=== PATIENT | female | born 1950 | race Caucasian/White ===

== ENCOUNTER 2016-10-09 10:35 | Day surgery (SDC) | payer MEDICARE, OTHER ==
[~2016-10-09] VITALS: Ht 167.6 cm; Wt 89.4 kg
[~2016-10-09 10:35] MED LIST: ACETAMINOPHEN 325 MG TAB PO PRN; ATEN100T7 PO; ATOR1TAB21 PO; BSS with VANC/TOB/EPI for EYE CASES IR ONE; CINN500C9 PO; CYCLOPENTOLATE 2% OPHTH SOLN 2ML BTL OS ONE; FERR28TA PO; FISH1000 PO; FOLI1TAB4 PO; GARC500T PO; GLUC500C5 PO; HEALON DUET (HEALON 10MG/ML 0.55ML & HEALON ENDOCOAT 30MG/ML 0.85ML) As Ordered ONE; LIDOCAINE 1% SDV 5 ML VIAL As Ordered ONE; LIDOCAINE 3.5 % 1ML OPHTH TOPICAL GEL OU ONE; METF500T13 PO; MOXIFLOXACIN IN BSS 0.25MG/0.25ML INTRACAMERAL INJ (OR EYE ONLY)(J2280) As Ordered ONE; NITR4PA EXT; OFLOXACIN 0.3 % (OCUFLOX) OPTH SOL 5ML OS ONE; OSTETAB4 PO; PANT40TA2 PO; PHENYLEPHRINE 2.5% OPHTH SOL 2ML OS ONE; POTA10TA16 PO; POVIDONE-IODINE 5% OPHTH PREP SOL 30ML As Ordered ONE; PROPARACAINE 0.5% OPHTH SOL 15ML OS PRN; TRIAMCINOLONE PRES FR 40 MG/ML 1ML(TRIESENCE)(OR EYE ONLY)(J3300 PER 1MG) As Ordered ONE; TROPICAMIDE 1% OPHTH SOLN 2ML OS ONE; TYLE650T35 PO; VALS1TAB46 PO; VITA100072 PO
[2016-10-09] MEDS ORDERED: LR 1,000 ML IV ONE (11:00)
[2016-10-09] MEDS ORDERED: LIDOCAINE 1% MDV 20ML VIAL SQ PRN (11:00)
[2016-10-09] MEDS ORDERED: MIDAZOLAM INJ 2 MG/2 ML VIAL (J2250) As Ordered ONE (12:57)
[2016-10-09] MEDS ORDERED: fentaNYL 100 MCG/2 ML INJECTION (J3010) As Ordered ONE (12:58)
[2016-10-09] MEDS ORDERED: AcetaZOLAMIDE 500 MG ER CAP PO ONE (14:30)
[2016-10-09] MEDS ORDERED: TRIMETHOBENZAMIDE 300 MG CAP PO PRN (14:30)
[2016-10-09] MEDS ORDERED: KETOROLAC 0.5% OPHTH SOLN OS ONE (14:30)
[2016-10-09 15:05] VITALS: BP 118/58
--- NOTE | 2016-10-11 11:25 | RO ---
DATE OF PROCEDURE: 10/09/2016 PREPROCEDURE DIAGNOSIS: Cataract of Left eye. POSTPROCEDURE DIAGNOSIS: Cataract of Left eye. PROCEDURE: Femtosecond laser and phacoemulsification of the intraocular lens with lens implantation Left eye. Intraocular lens power used was Left, [id number], power 20 diopter. SURGEON: Gilberto Bravo MD MANAGER WATER: None. ANESTHESIA: Local IV standby. FINDINGS: Cataract of Left eye. COMPLICATIONS: None. DESCRIPTION OF PROCEDURE: The patient was brought to the operating room and laid in supine position. A lid speculum was placed, and patient was brought under the femtosecond laser. After the satisfactory placement of the patient interface, primary incision, secondary incision, and arcuate incisions with lens fragmentation was done without any complication per plan. The patients interface was then removed and lid speculum removed. Patient was placed under the microscope. The eye was prepped and draped in a sterile fashion for ophthalmic surgery. Lid speculum was placed. The secondary incision was opened, and EndoCoat was injected into the anterior chamber. The temporal clear corneal incision was then opened and capsulorrhexis removed, followed by hydrodissection. This was followed by phacoemulsification of the lens within the capsular bag. Cortical material was then aspirated, and Healon was injected into the capsular bag. Intraocular lens was then placed. Excess Healon was aspirated. Wound was hydrated. The lid speculum was removed, and patient was returned to the recovery room in stable condition. KT
== END 2016-10-09 15:25 | disposition home or self-care (01) ==
LOC: M SDC 10:35
PROVIDERS: ATTEND Ophthalmology
DX: H25.9 Unspecified age-related cataract (principal); E11.9 Type 2 diabetes mellitus without complications; I10 Essential (primary) hypertension; E78.5 Hyperlipidemia, unspecified; K21.9 Gastro-esophageal reflux disease without esophagitis; Z87.891 Personal history of nicotine dependence; Z79.899 Other long term (current) drug therapy
CPT/HCPCS: 66984; J2250; J2280; J3010; J3300; V2788

== ENCOUNTER 2016-10-16 08:50 | Day surgery (SDC) | payer MEDICARE, OTHER ==
[~2016-10-16] VITALS: Ht 167.6 cm; Wt 89.4 kg
[~2016-10-16 08:50] MED LIST changes: +CYCLOPENTOLATE 2% OPHTH SOLN 2ML BTL OD ONE; -CYCLOPENTOLATE 2% OPHTH SOLN 2ML BTL OS ONE; -MOXIFLOXACIN IN BSS 0.25MG/0.25ML INTRACAMERAL INJ (OR EYE ONLY)(J2280) As Ordered ONE; +OFLOXACIN 0.3 % (OCUFLOX) OPTH SOL 5ML OD ONE; -OFLOXACIN 0.3 % (OCUFLOX) OPTH SOL 5ML OS ONE; +PHENYLEPHRINE 2.5% OPHTH SOL 2ML OD ONE; -PHENYLEPHRINE 2.5% OPHTH SOL 2ML OS ONE; +PROPARACAINE 0.5% OPHTH SOL 15ML OD PRN; -PROPARACAINE 0.5% OPHTH SOL 15ML OS PRN; +TROPICAMIDE 1% OPHTH SOLN 2ML OD ONE; -TROPICAMIDE 1% OPHTH SOLN 2ML OS ONE
[2016-10-16] MEDS ORDERED: LIDOCAINE 1% SDV 5 ML VIAL SQ ONE (09:00)
[2016-10-16] MEDS ORDERED: LR 500 ML IV ONE (09:00)
[2016-10-16] MEDS ORDERED: MIDAZOLAM INJ 2 MG/2 ML VIAL (J2250) As Ordered ONE ×2 (10:28→10:56)
[2016-10-16] MEDS ORDERED: ONDANSETRON 4MG/2ML VIAL (J2405) As Ordered ONE (10:28)
[2016-10-16] MEDS ORDERED: CEFUROXIME 1MG/0.1ML INTRACAMERAL INJ As Ordered ONE (10:46)
[2016-10-16] MEDS ORDERED: AcetaZOLAMIDE 500 MG ER CAP PO ONE (11:30)
[2016-10-16] MEDS ORDERED: TRIMETHOBENZAMIDE 300 MG CAP PO PRN (11:30)
[2016-10-16] MEDS ORDERED: KETOROLAC 0.5% OPHTH SOLN OD ONE (11:30)
[2016-10-16 11:50] VITALS: BP 122/58
--- NOTE | 2016-10-17 13:43 | RO ---
DATE OF PROCEDURE: 10/16/2016 PREPROCEDURE DIAGNOSIS: Cataract of right eye. POSTPROCEDURE DIAGNOSIS: Cataract of right eye. PROCEDURE: Femtosecond laser and phacoemulsification of the intraocular lens with lens implantation right eye. Intraocular lens power used was [id number], 19.5 diopter. SURGEON: Gilberto Bravo MD C4 PLANNER: None. ANESTHESIA: Local IV standby. FINDINGS: Cataract of right eye. COMPLICATIONS: None. DESCRIPTION OF PROCEDURE: The patient was brought to the operating room and laid in supine position. A lid speculum was placed, and patient was brought under the femtosecond laser. After the satisfactory placement of the patient interface, primary incision, secondary incision, and arcuate incisions with lens fragmentation was done without any complication per plan. The patients interface was then removed and lid speculum removed. Patient was placed under the microscope. The eye was prepped and draped in a sterile fashion for ophthalmic surgery. Lid speculum was placed. The secondary incision was opened, and EndoCoat was injected into the anterior chamber. The temporal clear corneal incision was then opened and capsulorrhexis removed, followed by hydrodissection. This was followed by phacoemulsification of the lens within the capsular bag. Cortical material was then aspirated, and Healon was injected into the capsular bag. Intraocular lens was then placed. Excess Healon was aspirated. Wound was hydrated. The lid speculum was removed, and patient was returned to the recovery room in stable condition.
== END 2016-10-16 12:00 | disposition home or self-care (01) ==
LOC: M SDC 08:50
PROVIDERS: ATTEND Ophthalmology
DX: H26.9 Unspecified cataract (principal); I20.9 Angina pectoris, unspecified; I10 Essential (primary) hypertension; E78.00 Pure hypercholesterolemia, unspecified; E11.9 Type 2 diabetes mellitus without complications; K21.9 Gastro-esophageal reflux disease without esophagitis; M15.0 Primary generalized (osteo)arthritis; J32.9 Chronic sinusitis, unspecified; N19 Unspecified kidney failure; F32.9 Major depressive disorder, single episode, unspecified; R31.29 Other microscopic hematuria; E66.9 Obesity, unspecified; Z79.899 Other long term (current) drug therapy; Z79.84 Long term (current) use of oral hypoglycemic drugs; Z78.0 Asymptomatic menopausal state; Z86.79 Personal history of other diseases of the circulatory system; Z87.891 Personal history of nicotine dependence
CPT/HCPCS: 66984; J2250; J2405; J3300; V2788

== ENCOUNTER → 2017-09-04 | Outpatient (REF) | payer MEDICARE, OTHER ==
[2017-09-04 18:10] LABS: URINE TOTAL PROTEIN 21.3 MG/DL (0-12)
[2017-09-04 18:16] LABS: FERRITIN 36 NG/ML (8-252); IRON (FE) 80 UG/DL (50-170); PERCENT SATURATION 26.6 % (13.2-45.0); TOTAL IRON BINDING CAPACITY 301 UG/DL (250-450); TOTAL PROTEIN 6.6 GM/DL (6.4-8.2)
[2017-09-07 09:05] LABS: FREE KAPPA LIGHT CHAINS SERUM 27.1 mg/L (3.3-19.4); FREE LAMBDA LIGHT CHAINS SERUM 19.9 mg/L (5.7-26.3); KAPPA/LAMBDA RATIO SERUM 1.36 (0.26-1.65)
[2017-09-08 14:56] LABS: ALBUMIN 3.87 GM/DL (3.29-5.55); ALBUMIN % 58.7 % (55.8-66.1); ALPHA-1-GLOBULIN % 4.9 % (2.9-4.9); ALPHA-1-GLOBULINS 0.32 GM/DL (0.17-0.41); ALPHA-2-GLOBULINS 0.67 GM/DL (0.42-0.99); ALPHA-2-GLOBULINS % 10.2 % (7.1-11.8); BETA-1-GLOBULINS 0.42 GM/DL (0.28-0.60); BETA-1-GLOBULINS % 6.4 % (4.7-7.2); BETA-2-GLOBULINS 0.34 GM/DL (0.19-0.55); BETA-2-GLOBULINS % 5.1 % (3.2-6.5); GAMMA GLOBULIN % 14.7 % (11.1-18.8); GAMMA GLOBULINS 0.97 GM/DL (0.65-1.58)
[2017-09-10 14:54] LABS: UPEP INTERPRETATION NO M-SPIKE NOTED; URINE VOLUME RANDOM ML
== END ==
LOC: M LAB REF 17:08
DX: N18.2 Chronic kidney disease, stage 2 (mild) (principal); E83.52 Hypercalcemia; D63.1 Anemia in chronic kidney disease
CPT/HCPCS: 83550

== ENCOUNTER → 2017-10-10 | Outpatient (REF) | payer MEDICARE, OTHER | LOC: M LAB REF 09:44 | DX: H02.413 Mechanical ptosis of bilateral eyelids (principal); H02.831 Dermatochalasis of right upper eyelid; H02.834 Dermatochalasis of left upper eyelid | CPT/HCPCS: 88302 ==

== ENCOUNTER → 2019-05-17 | Outpatient (CLI) | payer MEDICARE, OTHER ==
[~2019-05-17] MED LIST changes: -ACETAMINOPHEN 325 MG TAB PO PRN; -BSS with VANC/TOB/EPI for EYE CASES IR ONE; -CYCLOPENTOLATE 2% OPHTH SOLN 2ML BTL OD ONE; +FOLI1TAB11 PO; -FOLI1TAB4 PO; -HEALON DUET (HEALON 10MG/ML 0.55ML & HEALON ENDOCOAT 30MG/ML 0.85ML) As Ordered ONE; -LIDOCAINE 1% SDV 5 ML VIAL As Ordered ONE; -LIDOCAINE 3.5 % 1ML OPHTH TOPICAL GEL OU ONE; +NITR0.4D3 EXT; -NITR4PA EXT; -OFLOXACIN 0.3 % (OCUFLOX) OPTH SOL 5ML OD ONE; -PANT40TA2 PO; +PANT40TA3 PO; -PHENYLEPHRINE 2.5% OPHTH SOL 2ML OD ONE; -POVIDONE-IODINE 5% OPHTH PREP SOL 30ML As Ordered ONE; -PROPARACAINE 0.5% OPHTH SOL 15ML OD PRN; -TRIAMCINOLONE PRES FR 40 MG/ML 1ML(TRIESENCE)(OR EYE ONLY)(J3300 PER 1MG) As Ordered ONE; -TROPICAMIDE 1% OPHTH SOLN 2ML OD ONE; -VALS1TAB46 PO; +VALS1TAB66 PO; +VITA100018 PO; -VITA100072 PO
[2019-05-17 11:15] LABS: HEMATOCRIT 43.9 % (36.0-47.0); HEMOGLOBIN 13.8 g/dl (12.0-15.5); MEAN CORPUSCULAR HEMOGLOBIN 28.5 pg (27.0-33.0); MEAN CORPUSCULAR HGB CONC 31.4 g/dl (32.0-36.5); MEAN CORPUSCULAR VOLUME 90.5 fl (80.0-96.0); PLATELET COUNT, AUTOMATED 273 10^3/uL (150-450); RED BLOOD COUNT 4.85 10^6/uL (4.00-5.40); WHITE BLOOD COUNT 8.1 10^3/uL (4.0-10.0)
[2019-05-17 11:31] LABS: INR 1.01
--- NOTE | 2019-05-17 11:34 | REP ---
Clinical: Preoperative assessment for right knee replacement . Comparison: None . Technique: PA and lateral. Findings: The mediastinum and cardiac silhouette are normal. The lung beckwith are clear and without acute consolidation, effusion, or pneumothorax. The skeletal structures are intact and normal. Impression: 1. No acute cardiopulmonary process. Electronically Signed by Armando Lopez MD 05/17/2019 11:26 A
[2019-05-17 11:35] LABS: ERYTHROCYTE SEDIMENTATION RATE 15 mm/hr (0-30)
[2019-05-17 11:46] LABS: ALBUMIN 3.3 GM/DL (3.2-5.2); BILIRUBIN,TOTAL 0.5 MG/DL (0.2-1.0); CALCIUM LEVEL 9.7 MG/DL (8.8-10.2); CREATININE FOR GFR 1.23 MG/DL (0.55-1.30); POTASSIUM SERUM 4.3 MEQ/L (3.5-5.1); TOTAL PROTEIN 6.9 GM/DL (6.4-8.2)
--- NOTE | 2019-05-17 17:56 | ECGEPIP ---
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
== END ==
LOC: M LAB 10:47
PROVIDERS: ATTEND Orthopaedic Surgery
DX: Z01.818 Encounter for other preprocedural examination (principal); M17.11 Unilateral primary osteoarthritis, right knee; Z79.01 Long term (current) use of anticoagulants

== ENCOUNTER → 2019-08-06 | Outpatient (CLI) | payer MEDICARE, OTHER ==
[~2019-08-06] MED LIST changes: +BUPR300T92 PO; +CINN500C15 PO; +DULO1CAP6 PO; +FAMO40TA3 PO; +FERR325T82 PO; +IRON65TA2 PO; +NITR0.4D6 TD; +OMEG10002 PO; +PERC5TAB12 PO; +XARE10TA PO; +[UNRECOGNIZED DRUG - OTHER]
== END ==
LOC: M LABSMTC 09:56
PROVIDERS: ATTEND Anesthesiology
DX: Z01.818 Encounter for other preprocedural examination (principal); Z11.59 Encounter for screening for other viral diseases

== ENCOUNTER 2019-08-09 11:02 | Inpatient (IN) | payer MEDICARE, OTHER ==
--- NOTE | 2019-08-06 16:48 | HPE ---
DATE OF ANTICIPATED ADMISSION: 08/09/2019 ATTENDING PHYSICIAN: Dr. Chris Baumann CHIEF COMPLAINT: Right knee pain and stiffness. HISTORY: This is a pleasant 68-year-old female patient with progressively worsening right knee pain and stiffness who has failed to improve with conservative management and has elected for surgical intervention for her continued symptoms. She has been consented for a right total knee arthroplasty with Dr. Chris Baumann. ALLERGIES: NO KNOWN DRUG ALLERGIES. CURRENT MEDICATIONS: - acetaminophen 650 mg two by mouth every 8 hours for pain - aspirin 81 mg one by mouth daily - atenolol 50 mg one by mouth daily - baclofen 10 mg one by mouth three times a day - bupropion 300 mg one by mouth daily - chlorthalidone 25 mg half tablet by mouth daily - cinnamon 500 mg one by mouth daily - duloxetine 60 mg one by mouth daily - famotidine 40 mg one by mouth daily - fish oil 1000 mg one by mouth daily - folic acid 1 mg one by mouth daily - iron 325 mg one by mouth daily - magnesium oxide 400 mg one by mouth daily - nitroglycerin 0.4 mg one under tongue as needed PAST MEDICAL HISTORY: Hypertension. Stage III kidney disease. Angina. Sciatica. Hyperlipidemia. Prediabetes. PAST SURGICAL HISTORY: Cholecystectomy. FAMILY HISTORY: Noncontributory. SOCIAL HISTORY: The patient does not use alcohol or tobacco products. REVIEW OF SYSTEMS: Denies fever, chills, chest pain, shortness breath, nausea, vomiting, diarrhea. Denies any recent upper respiratory symptoms. Reports right knee pain and stiffness with ambulation. Reports recently resolved urinary tract infection (UTI). PHYSICAL EXAMINATION: Height 65.75 inches. Weight 186 pounds. Temperature 98.2. Blood pressure 124/74. Pulse 63. Respirations 15. She is normocephalic, atraumatic, ambulates in the clinic with an antalgic gait favoring the right knee. S1, S2 auscultated with no murmurs, rubs, or gallops. Lungs: Clear to auscultation bilaterally. Neck: Supple and nontender with no lymphadenopathy or jugular venous distention (JVD). Abdomen: Soft, nontender. Right knee shows intact neurovascular status is well perfused. She has intact range of motion. No obvious deformity. Overlying skin is intact. Chest x-ray from 05/17/2019 shows no acute cardiopulmonary process. EKG from 05/17/2019 with sinus rhythm. Labs from 05/17/2019, white blood count 8.1, red blood count 4.85, hemoglobin 13.8, hematocrit 43.9, ESR 15, BUN 28, creatinine 1.23, PT 13, INR 1.01. Patient reports that she saw her primary care provider and was medically optimized on 08/03/2019. This is not available yet for review on chart. IMPRESSION: Right knee symptomatic degenerative changes. The patient has been consented for right knee total arthroplasty with Dr. Baumann on 08/09/2019. She had a recently treated urinary tract infection, which has since resolved. She discontinued her Cipro on 08/05/2019. She has stopped her aspirin and fish oil in preparation for surgery. She will go ahead with the procedure pending clearance by her primary care provider.
[~2019-08-09] VITALS: Ht 167.6 cm; Wt 87.0 kg
[2019-08-09] VITALS (7 sets, daily range): BP systolic 117–162; BP diastolic 62–84; O2SAT 97
[~2019-08-09 11:02] MED LIST changes: +LR 1,000 ML IV ONE; -PERC5TAB12 PO; -XARE10TA PO
[2019-08-09] MEDS ORDERED: ceFAZolin SOD 2 GM in IV 1 EA IV ONE (12:00)
--- NOTE | 2019-08-09 12:02 | IPN ---
DATE: 08/09/2019 Patient seen and examined. She wished to go ahead with a right total knee arthroplasty. She understands the nature of this, the risks of bleeding, infection, damage to nerves, vessels, persistent pain, wear loosening, blood clots, medical problems, , among others.
[2019-08-09 12:22] LABS: INR 0.94; PROTHROMBIN TIME 12.3 SECONDS (11.8-14.0)
[2019-08-09] MEDS ORDERED: ceFAZolin 1GM VIAL (J0690 PER 500MG) As Ordered ONE (12:29)
[2019-08-09] MEDS ORDERED: BUPIVACAINE LIPOSOME/PF 1.3% 20ML VIAL (13.3MG/ML)(EXPAREL)(C9290 PER1MG) As Ordered ONE (12:29)
[2019-08-09] MEDS ORDERED: EPINEPHrine INJ 1 MG/ML 1ML AMP As Ordered ONE (12:29)
[2019-08-09] MEDS ORDERED: TRANEXAMIC ACID 100 MG/ML 10ML VIAL As Ordered ONE (12:29)
[2019-08-09] MEDS ORDERED: fentaNYL 100 MCG/2 ML INJECTION (J3010) As Ordered ONE ×2 (12:53→12:56)
[2019-08-09] MEDS ORDERED: MIDAZOLAM INJ 2MG/2ML VIAL (J2250 PER 1MG) As Ordered ONE ×2 (12:53→12:55)
[2019-08-09] MEDS ORDERED: ONDANSETRON 4MG/2ML VIAL As Ordered ONE (12:56)
[2019-08-09] MEDS ORDERED: propofoL 500 MG/50 ML VIAL As Ordered ONE (12:56)
[2019-08-09] MEDS ORDERED: LIDOCAINE 2% 100MG/5ML SDV (FOR ANES.) As Ordered ONE (12:56)
[2019-08-09] MEDS ORDERED: fentaNYL 100 MCG/2 ML INJECTION (J3010) IV PRN ×2 (13:30→16:10)
[2019-08-09] MEDS ORDERED: MIDAZOLAM INJ 2MG/2ML VIAL (J2250 PER 1MG) IV PRN (13:30)
[2019-08-09] MEDS ORDERED: ePHEDrine SULFATE 25 MG/5 ML(5MG/ML) SYRINGE As Ordered ONE (15:08)
[2019-08-09] MEDS ORDERED: PHENYLephrine HCL 500 MCG/5 ML (100MCG/ML) SYRINGE (J2370) As Ordered ONE (15:08)
[2019-08-09] MEDS ORDERED: EPINEPHrine INJ 1 MG/ML 1ML AMP ONE (15:22)
[2019-08-09] MEDS ORDERED: ROPIvacaine 0.5% 30ML INJECTION (J2795 PER 1MG) ONE (15:22)
[2019-08-09] MEDS ORDERED: LIDOCAINE 1% MDV 20ML VIAL ONE (15:22)
[2019-08-09] MEDS ORDERED: LR 1,000 ML IV SCH ×2 (16:10→16:15)
[2019-08-09] MEDS ORDERED: METOCLOPRAMIDE INJ 10MG/2ML VIAL (J2765 PER 1) IV PRN (16:10)
[2019-08-09] MEDS ORDERED: PERCOCET 5MG/325MG TAB PO PRN (16:10)
[2019-08-09] MEDS ORDERED: ONDANSETRON 4MG/2ML VIAL IV PRN ×2 (16:10→16:15)
[2019-08-09] MEDS ORDERED: MORPHINE 4 MG/ML 1ML VIAL/SYRINGE (J2270) IV PRN (16:15)
[2019-08-09] MEDS ORDERED: ACETAMINOPHEN TAB 650MG DOSE (2X325MG) PO PRN (16:15)
[2019-08-09] MEDS ORDERED: MORPHINE 2 MG/ML 1ML VIAL (J2270) IV PRN (16:15)
--- NOTE | 2019-08-09 16:59 | REP ---
REASON: Postop TKR. The femoral and tibial components of the total knee prosthetic device are well seated and well approximated. The alignment is near anatomical. There is expected postoperative soft tissue swelling. There is an anterior midline skin staple line in place. Electronically Signed by Javier Esposito DO 08/10/2019 08:12 A
--- NOTE | 2019-08-09 18:10 | HPEPDOC ---
[facility] Medical History & Physical Date of Admission Aug 09, 2019 Date of Service: Aug 09, 2019 Attending Physician: LORRI ODOM MD History and Physical TIME OF SERVICE: 4:30 PM REASON FOR CONSULT: Postoperative care HISTORY OF PRESENT ILLNESS: This is a 68-year-old female who underwent right total knee arthroplasty to manage severe osteoarthritis that she's had for 3-4 years. Currently, she denies having any acute pain or acute complaints. REVIEW OF SYSTEMS: n/a PAST MEDICAL/ SURGICAL HISTORY: Chronic HTN CKD 3 CAD/angina Sciatica Dyslipidemia GERD Depression Remote history of diabetes resolved after she lost weight Obesity Cholecystectomy Right total knee arthroplasty SOCIAL HISTORY: She is a former smoker She doesn't drink FAMILY HISTORY: Diabetes ALLERGIES: Please see below. HOME MEDICATIONS: Please see below. PHYSICAL EXAMINATION: Vital Signs Date Time Temp Pulse Resp B/P (MAP) Pulse Ox O2 Delivery O2 Flow Rate FiO2 08/09/19 12:05 97.0 61 18 150/65 (93) 94 08/09/19 12:55 Nasal Cannula 2 GEN: well-nourished / well developed/ NAD HEENT: NCAT /mucus membranes moist and pink CVS: RRR/NMRG/ radial pulses intact LUNGS: no coughing / lungs are clear to auscultation bilaterally on room air MSK/EXTREMITIES: range of motion intact in upper extremities / right lower leg wrapped in cast NEURO: CN 2-12 are grossly intact / speech is not dysarthric PSYCH: alert and oriented to person place and time/ able to understand and follow all commands LABORATORY DATA: Laboratory Tests 2 08/09/19 11:54: Erythrocyte Sedimentation Rate 22, Prothrombin Time 12.3, Prothromb Time International Ratio 0.94 08/09/19 14:12: Bedside Glucose (Misc Panel) 74L IMAGING: Right knee x-ray " The femoral and tibial components of the total knee prosthetic device are well seated and well approximated. The alignment is near anatomical. There is expected postoperative soft tissue swelling. There is an anterior midline skin staple line in place.". ASSESSMENT: Ms. Simon is a 68-year-old female with a history of CKD 3, HTN, dyslipidemia, GERD, CAD, and osteoarthritis who underwent right total knee arthroplasty today; we were consulted for postoperative care. PLAN: 1. Right knee osteoarthritis status post right total knee arthroplasty - pain med management and DVT prophylaxis rivaroxaban per primary team 2. Chronic HTN - atenolol/chlorthalidone 94992 3. CAD/angina / Dyslipidemia - atorvastatin, nitroglycerin patch when necessary, atenolol 4. Depression -bupropion, duloxetine 5. GERD - famotidine 6. Obesity with BMI of 31 complicates care - f/u A1C DVT PROPHYLAXIS: see above DISPOSITION: Pending clinical course Laboratory Data Labs 24H Home Medications Scheduled Acetaminophen (Tylenol Arthritis) 650 Mg Tab, 650 MG PO QAM Atenolol/Chlorthalidone (Atenolol-Chlorthalidone 100-25) 1 Tab Tab, 1 TAB PO DAILY Atorvastatin Calcium (Atorvastatin Calcium) 20 Mg Tab, 20 MG PO DAILY Bupropion HCl (Bupropion Xl) 300 Mg Tab.er.24h, 300 MG PO DAILY Cinnamon Bark (Cinnamon) 500 Mg Capsule, 500 MG PO DAILY Cyanocobalamin (Vitamin B-12) (Vitamin B-12) 1,000 Mcg Tab, 1,000 MCG PO DAILY Duloxetine Hcl (Duloxetine HCl) 60 Mg Capsule.dr, 60 MG PO DAILY Famotidine (Famotidine) 40 Mg Tablet, 40 MG PO DAILY Ferrous Sulfate (Iron) 325 Mg Tablet, 325 MG PO DAILY Folic Acid (Folic Acid) 1 Mg Tab, 1 MG PO DAILY Nitroglycerin (Nitroglycerin Patch) 0.4 Mg/Hr Patch.td24, 0.4 MG TD DAILY [place]-3/Dha/Epa/Fish Oil (Fish Oil 1,000 mg Softgel) 1 Each Capsule, 2 CAP PO DAILY Potassium Chloride (Potassium Chloride) 10 Meq Tab, 10 MEQ PO BID Allergies Coded Allergies: No Known Allergies (Unverified , 10/09/16) LORRI ODOM MD Aug 09, 2019 18:10
[2019-08-09] MEDS: PERCOCET 5MG/325MG TAB PO PRN (20:02)
[2019-08-09] MEDS: ATORVASTATIN 20 MG TAB PO SCH (21:42)
[2019-08-09] MEDS: POTASSIUM CHLORIDE 10 MEQ SR TABLET PO SCH (21:42)
[2019-08-09] MEDS: DULoxetine 30 MG CAP (CYMBALTA) PO SCH (21:42)
[2019-08-09] MEDS: **NOTE PATIENT COMMENT** MISC XX SCH (21:43)
[2019-08-09] MEDS: ceFAZolin SOD 2 GM in IV 1 EA IV SCH (22:48)
[2019-08-10] VITALS (7 sets, daily range): BP systolic 124–149; BP diastolic 54–68; O2SAT 93–95
[2019-08-10] MEDS: PERCOCET 5MG/325MG TAB PO PRN ×4 (02:18→18:34)
[2019-08-10 05:53] LABS: BASO % 0.4 % (0.0-1.0); EOS # 0.1 10^3/uL (0.0-0.5); EOS % 1.6 % (0.0-3.0); HEMATOCRIT 36.3 % (36.0-47.0); HEMOGLOBIN 11.5 g/dl (12.0-15.5); LYMPH # 1.5 10^3/uL (1.5-5.0); LYMPH % 18.6 % (24.0-44.0); MEAN CORPUSCULAR HGB CONC 31.7 g/dl (32.0-36.5); MEAN CORPUSCULAR VOLUME 91.4 fl (80.0-96.0); MONO # 0.8 10^3/uL (0.0-0.8); MONO % 9.6 % (0.0-5.0); NEUTROPHILS # 5.7 10^3/uL (1.5-8.5); NEUTROPHILS % 69.6 % (36.0-66.0); PLATELET COUNT, AUTOMATED 235 10^3/uL (150-450); RED BLOOD COUNT 3.97 10^6/uL (4.00-5.40); WHITE BLOOD COUNT 8.2 10^3/uL (4.0-10.0)
[2019-08-10 06:17] LABS: CALCIUM LEVEL 8.6 MG/DL (8.8-10.2); CREATININE FOR GFR 1.02 MG/DL (0.55-1.30); POTASSIUM SERUM 4.3 MEQ/L (3.5-5.1)
[2019-08-10] MEDS: ceFAZolin SOD 2 GM in IV 1 EA IV SCH (06:29)
[2019-08-10] MEDS ORDERED: XARE10TA PO (07:05)
[2019-08-10] MEDS ORDERED: PERC5TAB12 PO (07:05)
[2019-08-10 07:33] LABS: HEMOGLOBIN A1c 6.1 %
[2019-08-10] MEDS: MIRALAX *UNIT DOSE* 17GM PACKET PO SCH (08:32)
[2019-08-10] MEDS: FAMOTIDINE 20 MG TAB PO SCH (08:36)
[2019-08-10] MEDS: MOM 30ML SUSPENSION UDC PO SCH (08:36)
[2019-08-10] MEDS: atenoloL 50 MG TAB PO SCH (08:37)
[2019-08-10] MEDS: buPROPion **XL** TABLET 150MG (WELLBUTRIN XL) PO SCH (08:37)
[2019-08-10] MEDS: FERROUS SULFATE 325MG TAB PO SCH (08:37)
[2019-08-10] MEDS: CHLORTHALIDONE 25 MG TAB PO SCH (08:38)
[2019-08-10] MEDS: POTASSIUM CHLORIDE 10 MEQ SR TABLET PO SCH ×2 (08:38→20:08)
[2019-08-10] MEDS: CYANOCOBALAMIN 500 MCG TAB PO SCH (08:39)
[2019-08-10] MEDS: NITROGLYCERIN 0.4 MG/HR PATCH TD SCH (08:39)
[2019-08-10] MEDS ORDERED: NITROGLYCERIN 0.4 MG/HR PATCH TD SCH (09:00)
[2019-08-10] MEDS: RIVAROXABAN 10 MG TAB (XARELTO) PO SCH (18:33)
[2019-08-10] MEDS: ATORVASTATIN 20 MG TAB PO SCH (20:08)
[2019-08-10] MEDS: DULoxetine 30 MG CAP (CYMBALTA) PO SCH (20:08)
[2019-08-10] MEDS: **NOTE PATIENT COMMENT** MISC XX SCH (20:09)
[2019-08-11 05:28] VITALS: O2SAT 96
[2019-08-11 06:00] VITALS: BP 127/56
[2019-08-11 06:11] LABS: HEMOGLOBIN 11.2 g/dl (12.0-15.5); MEAN CORPUSCULAR HEMOGLOBIN 28.8 pg (27.0-33.0); PLATELET COUNT, AUTOMATED 230 10^3/uL (150-450); RED BLOOD COUNT 3.89 10^6/uL (4.00-5.40); WHITE BLOOD COUNT 8.6 10^3/uL (4.0-10.0)
[2019-08-11] MEDS: NITROGLYCERIN 0.4 MG/HR PATCH TD SCH (08:49)
[2019-08-11] MEDS: FAMOTIDINE 20 MG TAB PO SCH (08:49)
[2019-08-11] MEDS: POTASSIUM CHLORIDE 10 MEQ SR TABLET PO SCH ×2 (08:50→21:37)
[2019-08-11] MEDS: FERROUS SULFATE 325MG TAB PO SCH (08:50)
[2019-08-11] MEDS: MOM 30ML SUSPENSION UDC PO SCH (08:50)
[2019-08-11] MEDS: atenoloL 50 MG TAB PO SCH (08:50)
[2019-08-11] MEDS: CHLORTHALIDONE 25 MG TAB PO SCH (08:50)
[2019-08-11] MEDS: PERCOCET 5MG/325MG TAB PO PRN ×2 (08:50→17:44)
[2019-08-11] MEDS: CYANOCOBALAMIN 500 MCG TAB PO SCH (08:50)
[2019-08-11] MEDS: buPROPion **XL** TABLET 150MG (WELLBUTRIN XL) PO SCH (08:50)
[2019-08-11] MEDS: MIRALAX *UNIT DOSE* 17GM PACKET PO SCH (08:53)
--- NOTE | 2019-08-11 09:28 | RO ---
DATE OF PROCEDURE: 08/09/2019 PREOPERATIVE DIAGNOSIS: Right knee osteoarthritis. POSTOPERATIVE DIAGNOSIS: Right knee osteoarthritis. PROCEDURE: Right total knee arthroplasty using an Attune rotating platform cruciate retaining, size 4 femur, size 4 tibia, 8 polyethylene, 35 patellar button. SURGEON: Dr. Chris Baumann DENTAL ASSISTANT MEDICAL ASSISTANT: May Lopez PA-C ANESTHESIA: Spinal. ESTIMATED BLOOD LOSS: 50 COMPLICATIONS: None. INDICATIONS: 68-year-old woman with gradually worsening knee pain. She wished to go ahead with a knee replacement. Preoperative clearance was obtained. DESCRIPTION OF PROCEDURE: The patient was taken to the operating room and placed in the supine position after spinal anesthesia was induced. The right lower extremity was prepped and draped in the usual sterile fashion. Time-out was performed. Tourniquet was inflated. I then created a longitudinal incision over the anterior aspect of the knee. Sharp dissection was carried down through subcutaneous tissue. Controlled hemostasis with cautery. I made a parapatellar arthrotomy per routine, everted the patella, flexed the knee up, removed osteophytes, and used a canal initiating reamer on the femoral side followed by the intramedullary guide set at 5 degrees of valgus and a 9 mm cut. This was pinned in place, and the distal femoral cut was made, which looked to be a little less than I would have liked so I brought the cutting block back two more millimeters. This cut seemed to be appropriate. I then sized the femur to be a 4. The drill holes were placed in the end of the femur, and the cutting block was secured in the usual fashion. I then made the remaining four cuts, protecting soft tissues. We then prepared the tibia. The tibial alignment guide was then secured. The appropriate amount of posterior slope and valgus was dialed in. This was pinned in place 4 mm off the low side, which was medial. The proximal tibia cut was made, protecting soft tissues, and I protected the posterior cruciate ligament (PCL). I then removed this bone. Used the treatment coordinator to remove soft tissue and osteophytes from either side of the knee. Soft tissue balance seemed appropriate. I then did the sulcus cut on the femur with the guide and prepared the tibia. Size 4 tray [address], which fit very well. I then drilled and broached, and the trial components were inserted. Prior to that, I had used the spacer blocks and determined that a size 8 seemed to be of appropriate balance in flexion and extension for the cruciate retaining. The PCL was intact. I then placed the trial components and put the knee through range of motion. I was very pleased with stability and range of motion. She had full extension and excellent balance. I then freehand cut the patella, removing about 7 mm of bone, sized to be a 35. The drill holes were placed. The patella tracked very nicely. I also placed the drill holes in the end of the femur. The trial components were then removed. I irrigated copiously, placed the Exparel in the deep tissues, dried the bony surfaces, and cemented on the tibial component. Placed the polyethylene. Cemented on the femoral component. We removed all excess bone cement. Cemented on the patella, held it in place with a clamp, irrigated copiously. All excess bone cement had been removed. The tranexamic acid (TXA) was placed deep in the wound. I then began the closure and then once the cement hardened, removed the patellar clamp and irrigated deeply again. The final deep closure was performed with interrupted #1-0 Vicryl suture and running Stratafix. Irrigated. Closed the subcu with #2-0 Vicryl and the skin with tania. The tourniquet had been deflated once the cement hardened. Once the sterile dressing was applied, she was taken to recovery room in stable condition. There were no known complications. The plan will be routine postop. The assistant federal public defender was instrumental in holding retractors and mixing the bone cement and assisting in wound closure and assisting in exposure. Edited: kyle 08/14/2019 [id number]
[2019-08-11 14:00] VITALS: BP 97/56
[2019-08-11] MEDS: RIVAROXABAN 10 MG TAB (XARELTO) PO SCH (17:43)
[2019-08-11 21:30] VITALS: O2SAT 95
[2019-08-11] MEDS: ATORVASTATIN 20 MG TAB PO SCH (21:36)
[2019-08-11] MEDS: DULoxetine 30 MG CAP (CYMBALTA) PO SCH (21:37)
[2019-08-11] MEDS: **NOTE PATIENT COMMENT** MISC XX SCH (21:39)
[2019-08-11 22:00] VITALS: BP 116/51
[2019-08-12] MEDS: PERCOCET 5MG/325MG TAB PO PRN ×2 (04:32→17:38)
[2019-08-12 06:00] VITALS: BP 119/51
[2019-08-12] MEDS ORDERED: XARE10TA PO (06:09)
[2019-08-12 07:22] LABS: HEMATOCRIT 31.9 % (36.0-47.0); HEMOGLOBIN 10.2 g/dl (12.0-15.5); MEAN CORPUSCULAR HEMOGLOBIN 29.2 pg (27.0-33.0); MEAN CORPUSCULAR VOLUME 91.4 fl (80.0-96.0); PLATELET COUNT, AUTOMATED 203 10^3/uL (150-450); RED BLOOD COUNT 3.49 10^6/uL (4.00-5.40); WHITE BLOOD COUNT 7.6 10^3/uL (4.0-10.0)
[2019-08-12] MEDS: CYANOCOBALAMIN 500 MCG TAB PO SCH (08:09)
[2019-08-12] MEDS: FERROUS SULFATE 325MG TAB PO SCH (08:09)
[2019-08-12] MEDS: atenoloL 50 MG TAB PO SCH (08:09)
[2019-08-12] MEDS: MOM 30ML SUSPENSION UDC PO SCH (08:09)
[2019-08-12] MEDS: FAMOTIDINE 20 MG TAB PO SCH (08:09)
[2019-08-12] MEDS: buPROPion **XL** TABLET 150MG (WELLBUTRIN XL) PO SCH (08:09)
[2019-08-12] MEDS: POTASSIUM CHLORIDE 10 MEQ SR TABLET PO SCH ×2 (08:09→20:56)
[2019-08-12] MEDS: NITROGLYCERIN 0.4 MG/HR PATCH TD SCH (08:10)
[2019-08-12] MEDS: MIRALAX *UNIT DOSE* 17GM PACKET PO SCH (08:10)
[2019-08-12] MEDS: CHLORTHALIDONE 25 MG TAB PO SCH (08:10)
[2019-08-12 14:00] VITALS: BP 118/52
[2019-08-12] MEDS: RIVAROXABAN 10 MG TAB (XARELTO) PO SCH (17:38)
[2019-08-12] MEDS: ATORVASTATIN 20 MG TAB PO SCH (20:56)
[2019-08-12] MEDS: DULoxetine 30 MG CAP (CYMBALTA) PO SCH (20:56)
[2019-08-12] MEDS: **NOTE PATIENT COMMENT** MISC XX SCH (20:56)
[2019-08-12 22:00] VITALS: BP_SYST 140; BP_SYST 170; BP_DIAS 71
[2019-08-13 06:00] VITALS: BP 114/54
[2019-08-13 07:11] LABS: HEMATOCRIT 31.2 % (36.0-47.0); MEAN CORPUSCULAR HEMOGLOBIN 29.3 pg (27.0-33.0); MEAN CORPUSCULAR HGB CONC 32.1 g/dl (32.0-36.5); MEAN CORPUSCULAR VOLUME 91.5 fl (80.0-96.0); PLATELET COUNT, AUTOMATED 220 10^3/uL (150-450); RED BLOOD COUNT 3.41 10^6/uL (4.00-5.40); WHITE BLOOD COUNT 7.1 10^3/uL (4.0-10.0)
[2019-08-13 07:42] LABS: CALCIUM LEVEL 8.6 MG/DL (8.8-10.2); CREATININE FOR GFR 1.07 MG/DL (0.55-1.30); MAGNESIUM LEVEL 2.2 MG/DL (1.8-2.4); POTASSIUM SERUM 3.9 MEQ/L (3.5-5.1)
[2019-08-13 08:04] LABS: BASO % 0.4 % (0.0-1.0); EOS # 0.2 10^3/uL (0.0-0.5); EOS % 2.5 % (0.0-3.0); LYMPH # 1.8 10^3/uL (1.5-5.0); LYMPH % 25.7 % (24.0-44.0); MONO # 0.6 10^3/uL (0.0-0.8); MONO % 8.5 % (0.0-5.0); NEUTROPHILS # 4.3 10^3/uL (1.5-8.5); NEUTROPHILS % 62.6 % (36.0-66.0)
[2019-08-13] MEDS: MOM 30ML SUSPENSION UDC PO SCH (10:23)
[2019-08-13] MEDS: FERROUS SULFATE 325MG TAB PO SCH (10:23)
[2019-08-13] MEDS: CHLORTHALIDONE 25 MG TAB PO SCH (10:24)
[2019-08-13] MEDS: POTASSIUM CHLORIDE 10 MEQ SR TABLET PO SCH (10:24)
[2019-08-13] MEDS: PERCOCET 5MG/325MG TAB PO PRN (10:25)
[2019-08-13 10:27] VITALS: BP 114/61
[2019-08-13] MEDS: MIRALAX *UNIT DOSE* 17GM PACKET PO SCH (10:27)
[2019-08-13] MEDS: atenoloL 50 MG TAB PO SCH (10:27)
[2019-08-13] MEDS: buPROPion **XL** TABLET 150MG (WELLBUTRIN XL) PO SCH (10:27)
[2019-08-13] MEDS: CYANOCOBALAMIN 500 MCG TAB PO SCH (10:27)
[2019-08-13] MEDS: FAMOTIDINE 20 MG TAB PO SCH (10:28)
[2019-08-13] MEDS: NITROGLYCERIN 0.4 MG/HR PATCH TD SCH (10:28)
--- NOTE | 2019-08-13 12:57 | IPNPDOC ---
Text Note Date of Service The patient was seen on 08/13/19. NOTE Subjective: Patient was seen and examined at the bedside. Patient reports that he feels fine and they deny any chest pain, shortness of breath, palpitations, abdominal pain, nausea, vomiting, diarrhea, or urinary discomfort. Patient has been cleared by physical therapy and is likely to go home today. Objective: Vitals (See below) General: Lying in bed, no acute distress, comfortable, AAOx3 HEENT: NC, AT CVS: +S1S2 Lungs: Fair air entry b/l, -w/r/r Abdomen: Soft, ND, NT Extremities: - Edema, - Calf tenderness Assessment and plan: Right knee osteoarthritis s/p right total knee arthroplasty - Admitted to orthopedic service for elective procedure - Received outpatient medical clearance from PCP - Pain control, physical therapy and anticoagulation as per orthopedic team Chronic HTN - BP well controlled - c/w atenolol/chlorthalidone CAD/angina / Dyslipidemia - c/w atorvastatin, nitroglycerin patch when necessary, atenolol Depression - c/w Bupropion / duloxetine Obesity - BMI of 31 - A1c of 6.1 - Complicating medical care GERD - c/w Famotidine DVT prophylaxis - as per orthopedic surgery Disposition: - DC home today VS,Jarred, I+O VS, Jarred, I+O Laboratory Tests 08/13/19 06:43 08/13/19 06:45 Vital Signs Date Time Temp Pulse Resp B/P (MAP) Pulse Ox O2 Delivery O2 Flow Rate FiO2 08/13/19 10:27 70 114/61 08/13/19 10:25 18 Room Air 08/13/19 06:00 98.1 88 08/09/19 13:35 2 I&O- Last 24 Hours up to 6 AM 08/13/19 06:00 Intake Total 1580 ml Output Total 0 ml Balance 1580 ml DASH CASTRO MD Aug 13, 2019 12:57
== END 2019-08-13 13:15 | disposition home health service (06) | DRG 470 ==
LOC: M OR 11:02 → M MS5PR 17:50
PROVIDERS: ADMIT Orthopaedic Surgery; ATTEND Orthopaedic Surgery
PROC: 0SRC0J9 Replacement of Right Knee Joint with Synthetic Substitute, Cemented, Open Approach (ICD-10-PCS; principal; 2019-08-09 14:05)
DX: M17.11 Unilateral primary osteoarthritis, right knee (principal); I12.9 Hypertensive chronic kidney disease with stage 1 through stage 4 chronic kidney disease, or unspecified chronic kidney disease; N18.3 Chronic kidney disease, stage 3 (moderate); E78.5 Hyperlipidemia, unspecified; R73.03 Prediabetes; M54.30 Sciatica, unspecified side; I25.119 Atherosclerotic heart disease of native coronary artery with unspecified angina pectoris; K21.9 Gastro-esophageal reflux disease without esophagitis; F32.9 Major depressive disorder, single episode, unspecified; E66.9 Obesity, unspecified; Z68.31 Body mass index [BMI] 31.0-31.9, adult; Z90.49 Acquired absence of other specified parts of digestive tract; Z11.59 Encounter for screening for other viral diseases; Z79.82 Long term (current) use of aspirin; Z79.899 Other long term (current) drug therapy

== ENCOUNTER → 2020-11-06 | Outpatient (REF) | payer MEDICARE, OTHER ==
[~2020-11-06] MED LIST changes: +ACET650T61 PO; -LR 1,000 ML IV ONE; +PANT40TA29 PO; -PANT40TA3 PO; +PERC5TAB12 PO; -TYLE650T35 PO; +XARE10TA PO
== END ==
LOC: M LAB REF 18:01
PROVIDERS: ATTEND Internal Medicine Nephrology
DX: E83.42 Hypomagnesemia (principal)

== ENCOUNTER → 2022-03-19 | Outpatient (REF) | payer MEDICARE, OTHER ==
[~2022-03-19] MED LIST changes: +POTA-149 PO; -POTA10TA16 PO
[2022-03-19 17:41] LABS: TOTAL PROTEIN,RANDOM URINE 50.5 MG/DL (0.0-14.0)
[2022-03-19 18:01] LABS: CREATININE,RANDOM URINE 473.4 MG/DL
== END ==
LOC: M LAB REF 16:57
PROVIDERS: ATTEND Nurse Practitioner Family
DX: R80.9 Proteinuria, unspecified (principal)